=== PATIENT | male | born 1960 | race African-American/Black ===

== ENCOUNTER 2022-06-29 20:48 | Emergency (ER) | payer SELFPAY ==
[~2022-06-29] VITALS: Ht 177.8 cm; Wt 66.0 kg
[2022-06-29 20:52] VITALS: BP 175/100
[2022-06-29 22:41] LABS: BASOPHILS % 0.6 % (0.0-2.0); EOSINOPHILS % 2.2 % (0.0-5.0); HEMATOCRIT. 34.6 % (42.0-52.0); HEMOGLOBIN. 11.3 g/dL (14.0-18.0); LYMPHOCYTES % 33.2 % (20.0-50.0); MEAN CORPUSCULAR HEMOGLOBIN 28.4 pg (28.0-32.0); MEAN CORPUSCULAR VOLUME 86.7 fL (80.0-94.0); MEAN PLATELET VOLUME 8.2 fl (7.4-10.4); MONOCYTES % 13.8 % (2.0-8.0); NEUTROPHILS % 50.2 % (40.0-76.0); PLATELET 291 x1000/uL (130-400); RED BLOOD CELL COUNT 3.99 mill/uL (4.7-6.1); RED CELL DISTRIBUTION WIDTH 15.8 % (11.6-14.6)
[2022-06-29 22:48] LABS: CHLORIDE 106 mEq/L (98-107)
== END 2022-06-29 22:50 | disposition home or self-care (01) ==
LOC: ER 20:48
DX: R53.1 Weakness (principal); F10.10 Alcohol abuse, uncomplicated; Y90.9 Presence of alcohol in blood, level not specified; R03.0 Elevated blood-pressure reading, without diagnosis of hypertension
CPT/HCPCS: 36415; 71045; 80053; 85025; 99284